=== PATIENT | male | born 1975 | race Hispanic/Latino ===

== ENCOUNTER 2022-11-13 09:57 | Emergency (ER) | payer OTHER ==
[~2022-11-13] VITALS: Ht 165.1 cm; Wt 100.4 kg
[2022-11-13 10:08] VITALS: O2SAT 99
[2022-11-13] MEDS ORDERED: BENADRYL25 M1 PO (10:30)
[2022-11-13] MEDS ORDERED: PEPCID20 MG PO (10:30)
[2022-11-13] MEDS ORDERED: PREDNISONE20 MG PO (10:30)
== END 2022-11-13 10:37 | disposition home or self-care (01) ==
LOC: FSED 10:03
DX: R21 Rash and other nonspecific skin eruption (principal); L25.9 Unspecified contact dermatitis, unspecified cause; G40.909 Epilepsy, unspecified, not intractable, without status epilepticus
CPT/HCPCS: 99282

== ENCOUNTER 2022-11-26 04:23 | Emergency (ER) | payer OTHER ==
[~2022-11-26] VITALS: Ht 165.1 cm; Wt 100.2 kg
[~2022-11-26 04:23] MED LIST: BENADRYL25 M1 PO; PEPCID20 MG PO; PREDNISONE20 MG PO
[2022-11-26] MEDS ORDERED: IBUPROFEN 600 MG TAB PO STA (04:42)
[2022-11-26] MEDS ORDERED: DEXAMETHASONE SOD PHOS 10 MG/1 ML VIAL IV ONE (04:45)
[2022-11-26] MEDS ORDERED: DEXAMETHASONE SOD PHOS INJ 4 MG/ML SDV ONE (04:47)
[2022-11-26] MEDS ORDERED: IBUPROFEN 600 MG TAB ONE (04:47)
[2022-11-26 05:00] VITALS: BP 141/89; PULSE 109; RESP 18; TEMP 100; O2SAT 96
== END 2022-11-26 05:00 | disposition home or self-care (01) ==
LOC: FSED 04:31
DX: R09.89 Other specified symptoms and signs involving the circulatory and respiratory systems (principal); J02.9 Acute pharyngitis, unspecified; J06.9 Acute upper respiratory infection, unspecified; G40.909 Epilepsy, unspecified, not intractable, without status epilepticus; Z20.822 Contact with and (suspected) exposure to COVID-19
CPT/HCPCS: 83518; 87400; 99282; J1100; U0002